=== PATIENT | female | born 1960 | race Caucasian/White ===

== ENCOUNTER 2016-05-21 09:50 | Emergency (ER) | payer OTHER ==
[2016-05-21 09:35] LABS: URINE SOURCE CLEAN CATCH
[2016-05-21 09:38] LABS: URINE APPEARANCE CLEAR; URINE BILIRUBIN NEG (NEG); URINE BLOOD TRACE-INTACT (NEG); URINE COLOR YELLOW; URINE GLUCOSE NEG (NORM); URINE KETONE NEG (NEG); URINE LEUKOCYTE ESTERASE NEG (NEG); URINE NITRATE NEG (NEG); URINE PROTEIN NEG (NEG); URINE UROBILINOGEN 0.2 MG/DL (NORM)
[2016-05-21 09:39] LABS: MICRO INDICATED? YES
[~2016-05-21 09:50] MED LIST: LOTREL 5-20 MG1 CAP; PROTONIX PO; TRINTELLIX PO; WELLBUTRIN PO
[2016-05-21 09:59] LABS: CULTURE INDICATED? YES; URINE BACTERIA 1+ (NEG); URINE RBC 0-2 /[HPF] (0-2)
[2016-05-21 10:00] LABS: URINE SQUAMOUS EPITHELIAL CELL FEW /[HPF]
== END 2016-05-21 09:56 | disposition home or self-care (01) ==
LOC: SED 09:50
PROVIDERS: Emergency Medicine
DX: S39.012A Strain of muscle, fascia and tendon of lower back, initial encounter (principal); I10 Essential (primary) hypertension; Z98.890 Other specified postprocedural states; Z79.899 Other long term (current) drug therapy; X58.XXXA Exposure to other specified factors, initial encounter; Y92.9 Unspecified place or not applicable
CPT/HCPCS: 81003; 84703; 87086; 99283

== ENCOUNTER 2016-07-22 22:41 | Observation (INO) | payer OTHER ==
--- NOTE | ~2016-07-22 | EKG ---
PATIENT: EDILMA CHUA UNIT #: [id number] Ventricular Rate: 68 BPM Atrial Rate: 68 BPM P-R Interval: 152 ms QRS Duration: 84 ms Q-T Interval: 414 ms QTC Calculation(Bezet): 440 ms P [place]: 52 degrees Calculated R [place]: 31 degrees Calculated T [place]: 26 degrees Diagnosis Line: Normal sinus rhythm Diagnosis Line: Normal ECG Diagnosis Line: No previous ECGs available Diagnosis Line: Confirmed by SHARON PEREZ MD ([id number]) on Diagnosis Line: 07/24/2016 8:51:24 AM INTERPRETING MD: ANA MCKEON
--- NOTE | ~2016-07-22 | CT2 ---
[facility] Service of [facility] RADIOLOGY TEXT RESULTS PATIENT: EDILMA CHUA LOCATION: [address]- : [birth year] UNIT #: [id number] AGE: [address]: Ramone Patrick MD SEX: F ORDER DR: [id number] [place] [id number] MR#: [id number] Acc #: [id number] NAME: EDILMA CHUA : 1960 SEX: F STUDY DATE/TIME: 07/23/2016 0:32 UNIT: SEDOF ROOM: [id number] STUDY DESCRIPTION: CT Abd and Pelv W Cont Attending Physician: Ramone Patrick M.D. Ordering Physician: Greg Vargas P.A.-C. Primary Care Physician: Naomy Bradshaw M.D. MEDICAL IMAGING REPORT This report is preliminary unless electronic signature is present. EXAM CT abdomen and pelvis INDICATION Leukocytosis. Micro hemoglobin in the stool. Generalized abdominal pain and nausea. TECHNIQUE CT of the abdomen and pelvis utilizing l00 mL Isovue-370 IV contrast. Coronal and sagittal reconstructions were obtained. This CT exam was performed with one or more of the following radiation dose reduction techniques: automatic exposure control, adjustment of mA and/or kV according to patient size, and iterative reconstruction. COMPARISON CT abdomen 09/19/2006. FINDINGS ABDOMEN: There is low attenuation throughout the hepatic parenchyma. This is indicative of hepatic steatosis. Gallbladder is not distended. The pancreas, spleen, adrenal glands, and kidneys are within normal limits. There is no hydronephrosis. The bowel is not dilated. There is acute appendicitis. The appendix measures up to 1.1 cm. There is some mild periappendiceal inflammation. There is a small amount of free fluid in the pelvis. The abdominal aorta is normal in caliber. PELVIS: No pelvic mass. Bladder is unremarkable. Uterus and ovaries are within normal limits. [facility] of [facility] RADIOLOGY TEXT RESULTS PATIENT: EDILMA CHUA LOCATION: [address] : 64 UNIT #: [id number] AGE: [address]: Ramone Patrick MD SEX: F ORDER DR: No acute osseous abnormalities. IMPRESSION 1. Acute appendicitis. 2. Small volume free fluid in the pelvis. 3. Hepatic steatosis. Dictated by... Wesley Ritchie M.D. THIS IS AN ELECTRONICALLY VERIFIED REPORT Wesley Ritchie M.D. at 07/25/2016 12:22 AM JENNIE/trudy TD: 07/23/2016 04:05 JOB #: [id number] MEDICAL IMAGING REPORT Page 1 of 1
--- NOTE | ~2016-07-22 | BMI ---
[facility] Nutrition Therapy DATE: 07/24/16 Patient: EDILMA CHUA Physician: DILIA Address: [address] Room/Bed: [address] [place] [address], Zip: [place] [address] Admit Date: 07/23/16 Date of : [birth year] Height: 5 8 Weight: 270 122.46 HIGH BMI NOTE: DX: 56 Y.O. FEMALE ADMITTED FOR APPENDICITIS ANTHROPOMETRICS: 5'8", WT: 269# (122 KG), BMI: 40.9 DIET: REGULAR INTERVENTION: 1. REGULAR DIET RECOMMENDATIONS: 1. RECOMMEND TO CHANGE CURRENT DIET ORDER TO HEALTHY HEART TO PROMOTE GRADUAL WEIGHT LOSS TOWARDS HEALTHY BMI (19.0-25.0) OR +/-10%IBW RD WILL F/U PER PROTOCOL Respectfully, KAHLIL BRUNO MS, RD, LD [facility] cc: client file
--- NOTE | ~2016-07-22 | HP ---
Unit #: [id number] #: [id number] Patient: EDILMA CHUA [id number] [address] [address] [id number] I MR#: [id number] NAME: EDILMA CHUA ROOM: 218 Age: 56 Sex: F Admission Date: 07/23/2016 : 1960 Attending Physician: Ramone Patrick M.D. Primary Care Physician: Naomy Bradshaw M.D. HISTORY AND PHYSICAL HISTORY AND EXAM Ms. Chua is a pleasant 56-year-old female who has a 12-18 hour history of abdominal pain that localized to the right lower quadrant. It was associated with nausea. She denies any fever, chills, or diarrhea. In the emergency room, a CT scan was consistent with uncomplicated acute appendicitis. PAST MEDICAL HISTORY 1. Hypertension. 2. Endometrial ablation. 3. Tubal ligation. MEDICATIONS 1. Wellbutrin. 2. Lotrel. 3. Protonix. 4. Vitamin D. IMMUNIZATIONS She has not had a recent flu vaccine. FAMILY HISTORY Hypertension, diabetes, and atherosclerotic coronary artery disease. SOCIAL HISTORY Nonsmoker. Social alcohol drinker. 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 She is , has no children. REVIEW OF SYSTEMS Otherwise unremarkable. PHYSICAL EXAMINATION VITAL SIGNS: Temperature is 97.9, pulse 78, respirations 18, blood pressure 164/102, room air saturations 100%. GENERAL: Awake, alert, and oriented. HEENT: Unremarkable. CARDIAC: Regular rhythm. LUNGS: Clear. ABDOMEN: Soft with localized rebound tenderness in the right lower quadrant. EXTREMITIES: No edema. NEUROLOGIC: Grossly intact. SKIN: No skin rash or lesions. Unit #: [id number] #: [id number] Patient: EDILMA CHUA DIAGNOSTIC STUDIES LABORATORY: Chemistry within normal limits. White count 12,100, hemoglobin 14.2, platelets adequate at 282,000. Urinalysis negative for infection. IMAGING: CT consistent with an uncomplicated acute appendicitis. ASSESSMENT AND PLAN A 56-year-old female with acute appendicitis. We discussed laparoscopic appendectomy including risks, benefits, complications, and the possibility of conversion to open procedure. She understands and agrees to proceed. Dictated by Ramone Patrick M.D. Iza TD: 07/23/2016 13:55 JOB #: [id number] HISTORY AND PHYSICAL Page 1 of 1 X Ramone Patrick MD HISTORY AND PHYSICAL
--- NOTE | ~2016-07-22 | OR ---
Unit #: [id number] #: [id number] Patient: EDILMA CHUA [id number] [address] [place], [place] [address] [id number] I MR#: [id number] NAME: EDILMA CHUA ROOM: 218 Date of Procedure: 07/23/2016 Admission Date: 07/23/2016 Surgeon: Jason Jeffrey Jr., M.D. : 1960 Attending Physician: Ramone Patrick M.D. Primary Care Physician: Naomy Bradshaw M.D. OPERATIVE REPORT INDICATIONS FOR PROCEDURE The patient is a 56-year-old white female, who was admitted through the emergency room with classic signs and symptoms for acute appendicitis. CT scan was positive for this. White blood cell count was mildly elevated. She has an exam with right lower quadrant tenderness and some guarding. She was brought to the operating room at this time for laparoscopic appendectomy, possible open. She understands the procedure including the risks and consents. PREOPERATIVE DIAGNOSIS Acute appendicitis, probably nonperforated. POSTOPERATIVE DIAGNOSIS Acute appendicitis without perforation. ANESTHESIA General with endotracheal intubation and 0.5% Marcaine with epinephrine locally. PROCEDURES PERFORMED Laparoscopic appendectomy. DESCRIPTION OF PROCEDURE The patient was positioned in supine position. After being anesthetized and intubated, she was prepped and draped in routine fashion for laparoscopic appendectomy. A small infraumbilical incision was made approximately a 1 cm in length. This was carried down to the fascia. The fascia in the umbilicus was lifted with a towel clip, and a Veress needle introduced in the abdomen. The abdomen was then inflated with CO2 gas. A 5-mm port was introduced into the abdomen followed by the camera. There was no evidence of any injury related to introduction of the port of the Veress needle. Brief intra-abdominal exploration was carried out after an additional 5-mm port was placed half-way between the umbilicus and suprapubic area. Also, a 12 mm port was placed to the right of the upper midline. The cecum and appendix were then mobilized. There were multiple adhesions and the veil of Dwain obscuring the appendix. This was all sharply dissected out with hook scissors and the appendix freed up. It was acutely inflamed, but not perforated. A window at the base of the appendix was then created and using the 3.5 mm stapler, the base was stapled and transected and the mesoappendix was then stapled and transected using the vascular load. There was small amount of oozing from the staple line on the mesoappendix and this was controlled with several Unit #: [id number] #: [id number] Patient: EDILMA CHUA small hemoclips. After hemostasis was noted, the appendix was placed in EndoCatch bag and brought out through the larger port site and the port was replaced. The right lower quadrant checked. Sponges were then introduced one at a time in the right lower quadrant as well as the pelvic area absorbing the small amount of fluid from the pelvis. After total hemostasis was noted and all the sponges were removed, sponge count was correct x3. CO2 was expressed from the abdomen. The fascia in the larger port site closed prior to removal of the ports with the neoClose technique. After CO2 was expressed from the abdomen, the port sites were injected with 0.5% Marcaine with epinephrine and the skin edges on all the wounds were approximated with stainless-steel skin clips and skin stapling device. Sterile dressings were applied externally. Estimated blood loss less than 50 mL. The patient received less than 1000 mL crystalloid solution during the procedure. Sponges and instrument counts were correct x3. No drains used. No complications. The patient was taken to the recovery room with stable vital signs in satisfactory condition. Dictated by... Jason Jeffrey Jr., MIrais REAGAN/lulu TD: 08/02/2016 01:08 JOB #: [id number] OPERATIVE REPORT Page 1 of 1 X Jason Jeffrey MD X PROCEDURE OPERATIVE NOTE
[2016-07-22] MEDS ORDERED: VITAMIN D 22000 UNIT PO (22:51)
[2016-07-22 23:40] LABS: URINE SOURCE CLEAN CATCH
[2016-07-22 23:42] LABS: URINE APPEARANCE CLEAR; URINE BILIRUBIN NEG (NEG); URINE BLOOD 1+ (NEG); URINE COLOR YELLOW; URINE GLUCOSE NEG (NORM); URINE KETONE NEG (NEG); URINE LEUKOCYTE ESTERASE NEG (NEG); URINE NITRATE NEG (NEG); URINE PH 5.5 (5-8); URINE PROTEIN NEG (NEG); URINE UROBILINOGEN 0.2 MG/DL (NORM)
[2016-07-22 23:55] LABS: MICRO INDICATED? YES
[2016-07-22 23:56] LABS: BASOPHIL# 0.1 X10e3 (0-0.3); BASOPHIL% 0.4 % (0-2.5); EOSINOPHIL# 0.2 X10e3 (0-0.7); EOSINOPHIL% 1.4 % (0.0-7.0); HEMATOCRIT 42.2 % (35.0-45.0); HEMOGLOBIN 14.2 gm/dL (12.0-16.0); LYMPHOCYTE# 2.9 X10e3 (1.0-3.5); MEAN CELL VOLUME 82.8 FL (83-96); MEAN CORPUSCULAR HEMOGLOBIN 27.8 PG (28-34); MEAN CORPUSCULAR HGB CONC 33.6 g/dL (30-36); MEAN PLATELET VOLUME 8.9 FL (6.5-11.5); MONOCYTE# 0.6 X10e3 (0-1.0); MONOCYTE% 4.9 % (3.0-12.0); NEUTROPHIL# 8.4 X10e3 (1.5-7.1); NEUTROPHIL% 69.3 % (40-75); PLATELET COUNT 282 X10e3 (140-420); RED CELL DISTRIBUTION WIDTH 13.8 % (11.0-15.5); WHITE BLOOD COUNT 12.1 X10e3 (4.0-10.5)
[2016-07-22 23:56] LABS: CULTURE INDICATED? NO; URINE BACTERIA NEG (NEG)
[2016-07-22 23:59] LABS: POC - CKMB 1.6 ng/mL (0.0-7.9); POC - TROPONIN <0.05 ng/mL (<=0.05)
[2016-07-23] LABS: DIFF IND NO
[2016-07-23 00:07] LABS: ALBUMIN SERUM 4.4 g/dL (3.5-5.0); BILIRUBIN, DIRECT 0.1 mg/dL (0.0-0.2); BILIRUBIN,INDIRECT 0.2 mg/dL (0.0-0.9); BILIRUBIN,TOTAL 0.3 mg/dL (0.2-2.0); BUN/CREATININE RATIO 18.88; CALCIUM SERUM 9.4 mg/dL (8.4-10.2); CREATININE SERUM 0.9 mg/dL (0.6-1.4); GLOM FILT RATE Estimated 72.5 mL/min (>60); POTASSIUM 3.9 mmol/L (3.5-5.1); PROTEIN TOTAL SERUM 7.9 g/dL (6.0-8.3)
[2016-07-24 07:01] LABS: HEMATOCRIT 38.1 % (35.0-45.0); HEMOGLOBIN 12.4 gm/dL (12.0-16.0); MEAN CELL VOLUME 83.5 FL (83-96); MEAN CORPUSCULAR HEMOGLOBIN 27.3 PG (28-34); MEAN CORPUSCULAR HGB CONC 32.6 g/dL (30-36); MEAN PLATELET VOLUME 9.2 FL (6.5-11.5); RED BLOOD COUNT 4.57 X10e (3.90-5.30); RED CELL DISTRIBUTION WIDTH 13.7 % (11.0-15.5); WHITE BLOOD COUNT 11.4 X10e3 (4.0-10.5)
[2016-07-24] MEDS ORDERED: NORCO 7.5-3251 EACH PO (08:16)
== END 2016-07-24 09:52 | disposition home or self-care (01) | DRG 343 ==
LOC: SED 22:41 → CEDOF 07-23 01:27 → SEDOF 07-23 01:27 → SED 07-23 01:27 → C2A 07-23 01:28 → SEDOF 07-23 01:28 → C2A 07-23 11:34 → SEDOF 07-23 11:34 → C2A 07-23 11:34
PROVIDERS: Physician Assistant; Specialist; Surgery
PROC: 0DTJ4ZZ Resection of Appendix, Percutaneous Endoscopic Approach (ICD-10-PCS; principal; 2016-07-23 15:30)
DX: K35.80 Unspecified acute appendicitis (principal); I10 Essential (primary) hypertension; Z98.51 Tubal ligation status; Z98.890 Other specified postprocedural states; Z82.49 Family history of ischemic heart disease and other diseases of the circulatory system; Z83.3 Family history of diabetes mellitus; Z79.899 Other long term (current) drug therapy; K76.0 Fatty (change of) liver, not elsewhere classified
CPT/HCPCS: 36415; 74177; 80048; 80076; 81003; 82553; 83690; 84484; 85025; 85027; 88304; 93005; 96361; 96365; 96375; 96376; 99285; G0378; J0330; J1100; J1170; J2250; J2270; J2405; J2543; J2710; J2765; Q9967